=== PATIENT | male | born 1960 | race African-American/Black ===

== ENCOUNTER → 2021-01-16 | Outpatient (CLI) | payer MEDICARE, MEDICAID ==
[~2021-01-16] MED LIST: ASPI-1497 PO; BENA5TAB6 PO; DORZ10DR9 LEFTEYE; FENTANYL CITRATE/PF 50MCG/ML 2ML VIAL ONE; GLIP1TAB4 PO; HYDR25TA PO; IBUP-2029 PO; LORA10TA7 PO; MIDAZOLAM HCL 2 MG/2 ML VIAL ONE; MV-M1TAB19 PO; TIMO5DRO32 LEFTEYE
== END | disposition home or self-care (01) ==
LOC: LAB 11:08
PROVIDERS: ATTEND Ophthalmology
DX: Z01.812 Encounter for preprocedural laboratory examination (principal); Z20.822 Contact with and (suspected) exposure to COVID-19
CPT/HCPCS: 87426

== ENCOUNTER 2021-01-17 06:40 | Day surgery (SDC) | payer MEDICARE, MEDICAID ==
[~2021-01-17] VITALS: Ht 167.6 cm; Wt 103.4 kg
[~2021-01-17 06:40] MED LIST changes: -ASPI-1497 PO; +BALANCED SALT IRRIG SOLN 15ML ONE; -BENA5TAB6 PO; +CYCLOPENTOLATE HCL 1% OPHTH DROPS 2ML LEFTEYE ONE; -DORZ10DR9 LEFTEYE; -FENTANYL CITRATE/PF 50MCG/ML 2ML VIAL ONE; -GLIP1TAB4 PO; -HYDR25TA PO; -IBUP-2029 PO; +LIDOCAINE HCL/PF 2% 20 MG/ML 10ML VIAL ONE; -LORA10TA7 PO; -MIDAZOLAM HCL 2 MG/2 ML VIAL ONE; -MV-M1TAB19 PO; +NEO/POLYMYX B SULF/DEXAMETH OPHTH OINT 3.5GM ONE; +PHENYLEPHRINE HCL 10% OPHTH DROPS 5ML LEFTEYE ONE; +PHENYLEPHRINE HCL 10% OPHTH DROPS 5ML ONE; +PREDNISOLONE ACETATE 1% OPHTH DROPS 5ML ONE; +TETRACAINE 0.5% OPHTH DROPS 4ML ONE; -TIMO5DRO32 LEFTEYE; +TROPICAMIDE 1% OPHTH DROPS 15ML LEFTEYE ONE; +TROPICAMIDE 1% OPHTH DROPS 15ML ONE
[2021-01-17] MEDS ORDERED: BALANCED SALT IRRIG SOLN COMB1 500ML OP SCH (08:30)
[2021-01-17] MEDS ORDERED: HYALURONATE SODIUM 10 MG/ML 0.55ML SYRINGE IO ONE ×2 (08:40→09:12)
[2021-01-17] MEDS ORDERED: MEPERIDINE HCL/PF 25MG/ML CPJ IV PRN (08:45)
[2021-01-17] MEDS ORDERED: HYDROMORPHONE HCL/PF 2MG/ML CPJ IV PRN (08:45)
[2021-01-17] MEDS ORDERED: LABETALOL 5MG/ML SYR 20 MG/4 ML SYRINGE IV PRN (08:45)
[2021-01-17] MEDS ORDERED: ONDANSETRON HCL 4MG/2ML INJ IV PRN (08:45)
[2021-01-17] MEDS ORDERED: TRYPAN BLUE 0.5 ML DISP.SYRIN IO ONE (08:57)
[2021-01-17] MEDS: LACTATED RINGERS 1,000 ML IV SCH ×2 (09:11→11:24)
[2021-01-17] MEDS ORDERED: DORZ10DR9 LEFTEYE (09:33)
[2021-01-17] MEDS ORDERED: GLIP1TAB4 PO (09:33)
[2021-01-17] MEDS ORDERED: LORA10TA7 PO (09:33)
[2021-01-17] MEDS ORDERED: ASPI-1497 PO (09:33)
[2021-01-17] MEDS ORDERED: BENA5TAB6 PO (09:33)
[2021-01-17] MEDS ORDERED: HYDR25TA PO (09:33)
[2021-01-17] MEDS ORDERED: MV-M1TAB19 PO (09:33)
[2021-01-17] MEDS ORDERED: IBUP-2029 PO (09:33)
[2021-01-17] MEDS ORDERED: TIMO5DRO32 LEFTEYE (09:33)
== END 2021-01-17 11:00 | disposition home or self-care (01) ==
LOC: OR 06:40
PROVIDERS: ATTEND Ophthalmology
DX: E11.36 Type 2 diabetes mellitus with diabetic cataract (principal); H25.89 Other age-related cataract; I10 Essential (primary) hypertension; E78.00 Pure hypercholesterolemia, unspecified; Z98.890 Other specified postprocedural states; Z79.82 Long term (current) use of aspirin; Z79.84 Long term (current) use of oral hypoglycemic drugs; Z79.899 Other long term (current) drug therapy
CPT/HCPCS: 66984; 82962; J2250; J3010; J3490; V2632; Q9957

== ENCOUNTER → 2021-03-13 | Outpatient (CLI) | payer MEDICARE, MEDICAID ==
[~2021-03-13] MED LIST changes: +ASPI-1497 PO; -BALANCED SALT IRRIG SOLN 15ML ONE; +BENA5TAB6 PO; +CHOL500051 PO; -CYCLOPENTOLATE HCL 1% OPHTH DROPS 2ML LEFTEYE ONE; +DORZ10DR8 BOTHEYE; +DORZ10DR9 LEFTEYE; +GLIP1TAB4 PO; +HYDR25TA PO; +IBUP-2029 PO; -LIDOCAINE HCL/PF 2% 20 MG/ML 10ML VIAL ONE; +LORA10TA7 PO; +MV-M1TAB19 PO; -NEO/POLYMYX B SULF/DEXAMETH OPHTH OINT 3.5GM ONE; -PHENYLEPHRINE HCL 10% OPHTH DROPS 5ML LEFTEYE ONE; -PHENYLEPHRINE HCL 10% OPHTH DROPS 5ML ONE; -PREDNISOLONE ACETATE 1% OPHTH DROPS 5ML ONE; -TETRACAINE 0.5% OPHTH DROPS 4ML ONE; +TIMO5DRO32 BOTHEYE; +TIMO5DRO32 LEFTEYE; -TROPICAMIDE 1% OPHTH DROPS 15ML LEFTEYE ONE; -TROPICAMIDE 1% OPHTH DROPS 15ML ONE
== END | disposition home or self-care (01) ==
LOC: LAB 11:48
PROVIDERS: ATTEND Ophthalmology
DX: Z01.812 Encounter for preprocedural laboratory examination (principal); Z20.822 Contact with and (suspected) exposure to COVID-19
CPT/HCPCS: 87426

== ENCOUNTER → 2021-03-14 | Day surgery (SDC) | payer MEDICARE, MEDICAID ==
[~2021-03-14] VITALS: Ht 167.6 cm; Wt 103.4 kg
[~2021-03-14] MED LIST changes: +BALANCED SALT IRRIG SOLN 15ML ONE; +BALANCED SALT IRRIG SOLN COMB1 500ML OP NR; +CIPROFLOXACIN 0.3% OPHTH SOLN 2.5ML ONE; +FENTANYL CITRATE/PF 50MCG/ML 2ML VIAL ONE; +HYALURONATE SODIUM 10 MG/ML 0.55ML SYRINGE IO ONE; +KETOROLAC 30MG/ML VIAL ONE; +LIDOCAINE HCL/PF 2% 20 MG/ML 10ML VIAL ONE; +MIDAZOLAM HCL 2 MG/2 ML VIAL ONE; +NEO/POLYMYX B SULF/DEXAMETH OPHTH OINT 3.5GM ONE; +PHENYLEPHRINE HCL 10% OPHTH DROPS 5ML ONE; +PHENYLEPHRINE HCL 10% OPHTH DROPS 5ML RIGHTEYE NR; +PREDNISOLONE ACETATE 1% OPHTH DROPS 5ML ONE; +SODIUM CHLORIDE 0.9% 1,000 ML IV SCH; +TETRACAINE 0.5% OPHTH DROPS 4ML ONE; +TROPICAMIDE 1% OPHTH DROPS 15ML ONE; +TROPICAMIDE 1% OPHTH DROPS 15ML RIGHTEYE NR
== END | disposition home or self-care (01) ==
LOC: OR 06:43
PROVIDERS: ATTEND Ophthalmology
DX: E11.36 Type 2 diabetes mellitus with diabetic cataract (principal); H25.89 Other age-related cataract; E66.9 Obesity, unspecified; I10 Essential (primary) hypertension; Z87.891 Personal history of nicotine dependence; Z79.899 Other long term (current) drug therapy; Z79.82 Long term (current) use of aspirin; Z79.84 Long term (current) use of oral hypoglycemic drugs; Z98.890 Other specified postprocedural states
CPT/HCPCS: 66984; 82962; J1885; J2250; J3010; J3490; V2632